=== PATIENT | male | born 1955 | race Caucasian/White ===

== ENCOUNTER → 2017-09-15 | Outpatient (CLI) | payer OTHER | LOC: FCPNEURO 10:28 | PROVIDERS: ATTEND Student in an Organized Health Care Education/Training Program | DX: G47.33 Obstructive sleep apnea (adult) (pediatric) (principal) ==

== ENCOUNTER 2018-08-08 20:47 | Emergency (ER) | payer OTHER ==
[2018-08-08] MEDS ORDERED: NS 1,000 ML IV ONE (21:08)
--- NOTE | 2018-08-08 21:08 | EDPHY ---
General Time Seen by Provider: 08/08/18 20:57 Narrative: CHIEF COMPLAINT: Lightheaded, dizzy HISTORY OF PRESENT ILLNESS: Patient presents with complaints of feeling lightheaded and dizzy. Symptoms started over the past 3-4 days. Symptoms occur 3 4 times a day, lasting approximately 30 sec. He has minimal chest pressure on the 1st day but no chest pain over the past 2 days. He has no symptoms at this time. He did have symptoms earlier today. No predictable modifying factors, he occasionally does feel better when he sits down. He has no spinning sensation. No unilateral complaints. No numbness, tingling, weakness, diaphoresis, nausea vomiting. No previous incidence of this, but does have a previous history of atrial fibrillation. No other associated complaints or modifying factors. No known coronary disease or [place]. REVIEW OF SYSTEMS: 10 systems were reviewed and negative with the exception of the elements mentioned in the history of present illness. PCP: Dr. Chiu SPECIALISTS: Dr. Gay PAST MEDICAL HISTORY: Atrial fibrillation, intermittent back pain PAST SURGICAL HISTORY: No recent surgical history SOCIAL HISTORY: Never smoker. No drug or alcohol use. Works at [employer]. Accompanied by . FAMILY HISTORY: Noncontributory EXAMINATION: Vitals: Triage VS reviewed General Appearance: Alert, no distress Head: normocephalic, atraumatic Eyes: Pupils equal and round, no conjunctival pallor or injection. No nystagmus. ENT, Mouth: Mucous membranes moist Neck: Normal inspection, supple, non-tender Respiratory: Lungs are clear to auscultation Cardiovascular: Regular rate and rhythm. No murmur. Good signs of perfusion distally. Gastrointestinal: Abdomen is soft and nontender Back: non-tender, no bony abnormalities Neurological: Cranial nerves 2 through grossly intact. A&O, nonfocal, normal gait. Strength is symmetric in all 4 limbs Skin: Warm and dry, no rash Extremities: Nontender, no pedal edema Psychiatric: Mood and affect normal DIFFERENTIAL DIAGNOSES: Including but not limited to near syncope, syncope, dehydration, vertebrobasilar syndrome, hypomagnesemia, atrial fibrillation, SVT, electrolyte disturbance MDM: 9:00 p.m. Intermittent feelings of near syncope over the past 3-4 days with no symptoms at this time. He has had no chest pain today. He has been asymptomatic for several hours. He had no difficulty walking into the emergency department. I have ordered cardiac workup and orthostatic vital signs. He is awake and alert. No acute distress. Case discussed with Dr. Garcia 10:00 p.m. X-ray negative per Radiology. Troponin is negative. Laboratory studies are negative including electrolytes and magnesium. I re-evaluated the patient. He is feeling well and remains asymptomatic. I did offer admission to the hospital for observation and further cardiac monitoring and he has declined. He would like to go home. I do feel it is reasonable, and a safe for discharge home at this time. We discussed discharge home with outpatient cardiology follow-up soon this week. We discussed ED precautions for any return of symptoms, chest pain, unilateral complaints or loss of consciousness. Both he and his at bedside are comfortable this plan. He is well-appearing and discharged home stable condition SUPERVISION: Patient was independently examined, but I discussed the case with my secondary supervising physician Dr. Garcia CONSULTATION: None - Diagnostics Imaging Results: Imaging Impressions Chest X-Ray 08/08/18 21:08 Impression: Grossly stable pleural thickening and blunting of the right costophrenic angle with no definite acute findings. - History Smoking Status: Never smoked - Objective Vital Signs: Initial Vital Signs Temperature (C) 97.5 F 08/08/18 20:48 Heart Rate 85 08/08/18 20:48 Respiratory Rate 18 08/08/18 20:48 Blood Pressure 155/84 H 08/08/18 20:48 O2 Sat (%) 95 08/08/18 20:48 O2 Delivery Mode Room Air Allergies/Adverse Reactions: erythromycin base Allergy (Verified 08/08/18 20:54) Laboratory Results: Laboratory Results 08/08/18 21:10 08/08/18 21:10 08/08/18 08/08/18 08/08/18 21:16 21:15 21:10 WBC RBC Hgb POC Hgb 14.3 gm/dL gm/dL (13.7-17.5) Hct POC Hct 42 % % (40-51) MCV MCH MCHC RDW Plt Count MPV Neut % (Auto) Lymph % (Auto) Kemper % (Auto) Eos % (Auto) Baso % (Auto) Nucleat RBC Rel Count Absolute Neuts (auto) Absolute Lymphs (auto) Absolute Monos (auto) Absolute Eos (auto) Absolute Basos (auto) Absolute Nucleated RBC Immature Gran % Immature Gran # POC Sodium 142 mEq/L mEq/L (135-145) Sodium 138 mEq/L mEq/L (135-145) POC Potassium 3.5 mEq/L mEq/L (3.3-5.0) Potassium 3.6 mEq/L mEq/L (3.3-5.0) POC Chloride 106 mEq/L mEq/L (97-110) Chloride 104 mEq/L mEq/L (97-110) Carbon Dioxide 25 mEq/l mEq/l (22-31) Anion Gap 9 mEq/L mEq/L (6-14) POC BUN 17 mg/dL mg/dL (7-23) BUN 18 mg/dL mg/dL (7-23) Creatinine 0.8 mg/dL mg/dL (0.7-1.3) POC Creatinine 0.9 mg/dL mg/dL (0.7-1.3) Estimated GFR > 60 Glucose 109 mg/dL H mg/dL (70-100) POC Glucose 114 mg/dL H mg/dL (70-100) Calcium 9.2 mg/dL mg/dL (8.5-10.4) Magnesium 2.0 mg/dL mg/dL (1.6-2.3) POC Troponin I 0.00 ng/mL ng/mL (0.00-0.08) NT-Pro-B Natriuret Pep 54 pg/mL pg/mL (0-125) 08/08/18 21:10 WBC 5.17 10^3/uL 10^3/uL (3.80-9.50) RBC 4.62 10^6/uL 10^6/uL (4.40-6.38) Hgb 14.8 g/dL g/dL (13.7-17.5) POC Hgb Hct 42.6 % % (40.0-51.0) POC Hct MCV 92.2 fL fL (81.5-99.8) MCH 32.0 pg pg (27.9-34.1) MCHC 34.7 g/dL g/dL (32.4-36.7) RDW 13.1 % % (11.5-15.2) Plt Count 166 10^3/uL 10^3/uL (150-400) MPV 9.1 fL fL (8.7-11.7) Neut % (Auto) 49.8 % % (39.3-74.2) Lymph % (Auto) 35.8 % % (15.0-45.0) Kemper % (Auto) 8.9 % % (4.5-13.0) Eos % (Auto) 3.7 % % (0.6-7.6) Baso % (Auto) 1.4 % % (0.3-1.7) Nucleat RBC Rel Count 0.0 % % (0.0-0.2) Absolute Neuts (auto) 2.58 10^3/uL 10^3/uL (1.70-6.50) Absolute Lymphs (auto) 1.85 10^3/uL 10^3/uL (1.00-3.00) Absolute Monos (auto) 0.46 10^3/uL 10^3/uL (0.30-0.80) Absolute Eos (auto) 0.19 10^3/uL 10^3/uL (0.03-0.40) Absolute Basos (auto) 0.07 10^3/uL 10^3/uL (0.02-0.10) Absolute Nucleated RBC 0.00 10^3/uL 10^3/uL (0-0.01) Immature Gran % 0.4 % % (0.0-1.1) Immature Gran # 0.02 10^3/uL 10^3/uL (0.00-0.10) POC Sodium Sodium POC Potassium Potassium POC Chloride Chloride Carbon Dioxide Anion Gap POC BUN BUN Creatinine POC Creatinine Estimated GFR Glucose POC Glucose Calcium Magnesium POC Troponin I NT-Pro-B Natriuret Pep Medications Given: Discontinued Medications Sodium Chloride (Ns) 1,000 mls @ 0 mls/hr IV EDNOW ONE; Wide Open PRN Reason: Protocol Stop: 08/08/18 21:09 Last Admin: 08/08/18 21:19 Dose: 1,000 mls Point of Care Test Results: Chemistry 08/08/18 08/08/18 21:16 21:15 POC Sodium 142 mEq/L mEq/L (135-145) POC Potassium 3.5 mEq/L mEq/L (3.3-5.0) POC Chloride 106 mEq/L mEq/L (97-110) POC BUN 17 mg/dL mg/dL (7-23) POC Creatinine 0.9 mg/dL mg/dL (0.7-1.3) POC Glucose 114 mg/dL H mg/dL (70-100) POC Troponin I 0.00 ng/mL ng/mL (0.00-0.08) ISTAT H&H 08/08/18 21:16 POC Hgb 14.3 gm/dL gm/dL (13.7-17.5) POC Hct 42 % % (40-51) Departure - Departure Disposition: Home, Routine, Self-Care Clinical Impression: Near syncope Condition: Good Instructions: Syncope (ED), Near Syncope (ED) Additional Instructions: 1. Contact primary care physician tomorrow morning 2. Contact diesel engine pipe fitter tomorrow morning to be seen in the next 48 hr 3. Return to emergency depart for any chest pain, unilateral complaints, numbness, tingling or weakness, lightheaded, dizziness or loss of consciousness Referrals: DENISE CHIU MD [Other] - As per Instructions Cody Biggs MD [Medical Doctor] - As per Instructions Physician,Emergency DeptMD [Medical Doctor] - As per Instructions
[2018-08-08 21:33] LABS: PLATELET COUNT 166 10^3/uL (150-400)
[2018-08-08 22:19] VITALS: BP 155/93
--- NOTE | 2018-08-08 22:54 | CPEKG ---
Test Reason : OPEN Blood Pressure : / mmHG Vent. Rate : 078 BPM Atrial Rate : 078 BPM P-R Int : 159 ms QRS Dur : 109 ms QT Int : 409 ms P-R-T Axes : 042 030 083 degrees QTc Int : 466 ms Sinus rhythm Confirmed by Luis Alberto Garcia ([id number]) on 08/08/2018 10:53:16 PM Referred By: Confirmed By:Luis Alberto Garcia
== END 2018-08-08 22:12 | disposition home or self-care (01) ==
DX: R55 Syncope and collapse (principal); Z86.79 Personal history of other diseases of the circulatory system
CPT/HCPCS: 82435-PO; 82565-PO; 82947-PO; 84132-PO; 84295-PO; 84484-PO; 84520-PO; 85014-PO